=== PATIENT | male | born 2000 | race Caucasian/White ===

== ENCOUNTER 2021-12-23 10:51 | Emergency (ER) | payer OTHER ==
[~2021-12-23] VITALS: Ht 182.9 cm; Wt 79.5 kg
[2021-12-23 11:06] VITALS: TEMP 97.7
[2021-12-23 11:20] VITALS: BP 109/67; PULSE 72
== END 2021-12-23 11:24 | disposition home or self-care (01) ==
LOC: COL.ER 10:51
DX: L50.9 Urticaria, unspecified (principal); J30.2 Other seasonal allergic rhinitis; F17.210 Nicotine dependence, cigarettes, uncomplicated